=== PATIENT | female | born 1975 | race African-American/Black ===

== ENCOUNTER 2016-10-28 10:20 | Emergency (ER) | payer OTHER ==
[~2016-10-28] VITALS: Ht 170.2 cm; Wt 95.1 kg
[~2016-10-28 10:20] MED LIST: ACID CONTROL20 MG PO; ALL DAY ALLERGY10 M3 PO; AUGMENTIN875 MG PO; BENADRYL25 MG PO; BENADRYL50 MG PO; DESONIDE15 GM TP; EPIPEN ADU0.3 MG/0.3 IM; FIORICET,ESG1 TABLET PO; FLEXERIL5 MG PO; HYDROCORTISONE30 G2 TP; HYDROCORTISONE30 G3 TP; MOBIC15 MG PO; MUSCLE RUB CRE113 G1 TP; NAPROSYN500 MG; PEPCID20 MG PO; PREDNISONE10 M1 PO; PREDNISONE10 MG PO; PREDNISONE20 MG PO; PROMETHAZINE HC25 M1 PO; TRAMADOL HCL50 MG; ZOFRAN ODT4 MG PO; ZYRTEC10 M2 PO
[2016-10-28 11:39] LABS: EOSINOPHIL (%) 3.3 % (0-5); EOSINOPHIL COUNT 0.2 K/uL (0-0.3); HEMATOCRIT 42.6 % (36.0-46.0); IMMATURE GRANULOCYTE (%) 0.2 % (0.0-0.7); INSTRUMENT ABS NEUTROPHIL CT 2.8 K/uL; LYMPHOCYTE COUNT 2.6 K/uL (1.0-2.8); MCHC 32.4 G/DL (30.0-36.0); MCV 89.5 FL (83-99); MEAN PLAT.VOLUME 9.7 uM^3 (9.5-12.4); MONOCYTE (%) 7.3 % (3-12); MONOCYTE COUNT 0.5 K/uL (0-0.8); NEUTROPHIL (%) 45.9 % (45-76); NEUTROPHIL COUNT 2.8 K/uL (1.8-6.4); PLATELET COUNT 266 K/uL (156-360); RBC DIS.WIDTH-CV 14.1 % (11.8-14.6); RBC DIS.WIDTH-SD 46.1 % (39-53); RED BLOOD COUNT 4.76 M/uL (3.80-5.20); WHITE BLOOD COUNT 6.2 K/uL (4.1-10.2)
[2016-10-28 11:54] LABS: CHLORIDE 111 mEq/L (99-109); POTASSIUM 3.9 mEq/L (3.7-5.4); SODIUM 146 mEq/L (136-147)
[2016-10-28 11:56] LABS: GLUCOSE 85 mg/dL (70-99)
[2016-10-28 11:57] LABS: ANION GAP 10 MEQ/L (2-14)
[2016-10-28 11:58] LABS: TOTAL BILIRUBIN 0.3 mg/dL (0.0-1.0)
[2016-10-28 12:00] LABS: ALKALINE PHOSPHATASE 87 IU/L (3-129); GFR ESTIMATE (CALCULATED) > 59 mL/min/
[2016-10-28 12:01] LABS: UREA NITROGEN (BUN) 13 mg/dL (9-23)
[2016-10-28 12:10] LABS: QUANTITATIVE HCG < 4.0 MIU/ML
[2016-10-28 14:00] LABS: ADD MIUA? NO; BILIRUBIN NEGATIVE; BLOOD NEGATIVE; COLOR YELLOW ((YELLOW)); GLUCOSE (STRIP) NEGATIVE; KETONES NEGATIVE; LEUKOCYTES NEGATIVE; NITRITE NEGATIVE; PROTEIN (STRIP) 30; SPECIFIC GRAVITY 1.017 (1.000-1.030); UCUL ADDED? NO
[2016-10-28] MEDS ORDERED: VALIUM2 MG PO (16:37)
[2016-10-28] MEDS ORDERED: PERCOCET 5/31 TABLET PO (16:37)
[2016-10-28] MEDS ORDERED: MEDROL DOSEPAK4 MG PO (16:37)
[2016-10-28] MEDS ORDERED: MOTRIN600 MG PO (16:37)
[2016-10-28 17:01] VITALS: BP 136/80
== END 2016-10-28 17:03 | disposition home or self-care (01) ==
LOC: EME 10:20
PROVIDERS: Emergency Medicine
DX: M79.605 Pain in left leg (principal); M21.372 Foot drop, left foot; F17.200 Nicotine dependence, unspecified, uncomplicated
CPT/HCPCS: 70450; 72125; 72131; 80053; 81003; 84702; 85025; 93971; 99281; 99285; J1100; J1885; J3010; J3360

== ENCOUNTER 2017-10-04 09:32 | Emergency (ER) | payer OTHER ==
[~2017-10-04] VITALS: Ht 167.6 cm; Wt 94.2 kg
[~2017-10-04 09:32] MED LIST changes: +MEDROL DOSEPAK4 MG PO; +MOTRIN600 MG PO; +PERCOCET 5/31 TABLET PO; +VALIUM2 MG PO
[2017-10-04] MEDS ORDERED: PREDNISONE50 MG PO (13:29)
[2017-10-04] MEDS ORDERED: NORCO 5/3251 TABLET PO (13:29)
[2017-10-04 13:45] VITALS: BP 132/68
== END 2017-10-04 13:46 | disposition home or self-care (01) ==
LOC: EME 09:32
DX: M54.16 Radiculopathy, lumbar region (principal); M21.372 Foot drop, left foot; G89.29 Other chronic pain; F17.200 Nicotine dependence, unspecified, uncomplicated; D64.9 Anemia, unspecified; Z88.5 Allergy status to narcotic agent
CPT/HCPCS: 72100; 99281; 99284; J7512